=== PATIENT | male | born 1955 | race Caucasian/White ===

== ENCOUNTER → 2016-08-05 | Outpatient (CLI) | payer OTHER ==
[~2016-08-05] MED LIST: ACET-654 PO; AMIT10TA PO; CELE-19 PO; HYDR-3713 PO; HYDR-3716 PO; HYDR-3719 PO; HYDR7.5T38 PO; IBUP200T2 PO; LISI-538 PO; LISI10TA4 PO; LYRI150C PO; MIRA33504 PO; PANT40TA2 PO; PROT1TAB2 PO; RANI1TAB6 PO; SOMA350T PO; SUCR1TA PO; TIZA4CAP3 PO; TRAM100T13 PO; TRAM50TA2 PO; TYLE325T5 PO
--- NOTE | 2016-08-14 23:41 | ECWPNPC ---
PATIENT NAME: CHELITA JIMENEZ : 1955 GENDER: MALE VISIT DATE: 08/05/2016 DISCHARGE DATE: 08/05/16 1604 VISIT LOCKED DATE TIME: PHYSICIAN: LORIE COLLADO RESOURCE: LORIE COLLADO REASON FOR APPOINTMENT 1. WC, BACK HISTORY OF PRESENT ILLNESS HISTORY OF PRESENT ILLNESS: PAIN THE PATIENT DESCRIBES THE PAIN... 61 YEAR OLD MALE PATIENT WITH HISTORY OF CHRONIC BACK PAIN. PATIENT DESCRIBES THE PAIN ACHING, STABBING, TENDER, SORE, AND HAVING IT ALL THE TIME WITH A PAIN SCORE OF 7/10. PATIENT WAS INJURED IN A WORK RELATED ACCIDENT ON 09/01/2006 WHILE WORKING FOR [employer] WHEN HE INJURED HIS BACK. PATIENT REPORTS THAT SOMETIMES THE PAIN WILL WAKE HIM UP AT NIGHT, AND SOMETIMES HE BARELY GETS ANY SLEEP. PATIENT STATES THAT TAKING LYRICA AND NORCO GREATLY INCREASES HIS MOBILITY AND FUNCTIONALITY, THAT WITHOUT THE MEDICATION HIS PAIN LEVELS WOULD BE FAR WORST. PATIENT REPORTS THAT HE HAS TRIED PHYSICAL THERAPY IN THE PAST AND IT ONLY MADE THE PAIN WORST. PATIENT REPORTS THAT A HOT AND COLD COMPRESS DOES TEMPORARILY RELIEF THE PAIN IN HIS BACK. PATIENT DENIES UNEXPLAINABLE WEIGHT LOSS, FEVER, CHILLS, NEW CHANGES ON HIS URINARY OR BOWEL CONTROL. FALL RISK SCREENING: SCREENING :NO FALLS IN THE PAST YEAR CURRENT MEDICATIONS TAKING RANITIDINE HCL 150 MG TABLET 1 TABLET ORALLY TWICE A DAY TAKING CARAFATE 1 GM TABLET 1 TABLET ORALLY TWICE A DAY TAKING MIRALAX - POWDER 1 SCOOP ORALLY ONCE A DAY NEEDED TAKING LYRICA 200 MG CAPSULE 1 CAPSULE ORALLY TID MDD3, NOTES: PAIN CLINIC TAKING LISINOPRIL 20 MG TABLET 1 TABLET ORALLY ONCE A DAY TAKING PROTONIX 40 MG TABLET DELAYED RELEASE 1 TABLET ORALLY ONCE A DAY TAKING REGLAN 10 MG TABLET 1 TABLET ORALLY FOUR TIMES A DAY (BEFORE MEALS AND AT BEDTIME) TAKING NORCO 10-325 MG TABLET 1 ORALLY EVERY 6 HRS PRN MDD4 DISCONTINUED MELOXICAM 10 MG CAPSULE 1 CAPSULE ORALLY ONCE A DAY MEDICATION LIST REVIEWED AND RECONCILED WITH THE PATIENT PAST MEDICAL HISTORY ACUTE PANCREATITIS LAPARASCOPIC CHOLECYSTECTOMY BY DR. SIDHU CHRONIC LOW BACK PAIN CHRONIC LOW BACK PAIN CHRONIC HAND PAIN ALLERGIES N.K.D.A. SURGICAL HISTORY LUMBAR LAMINECTOMY 2006 RIGHT HAND SURGERY S/P TRAUMATIC AMPUTATION OF FINGERS FROM A TABLE SAW 2012 GALL BLADDER 02/2014 COLONSCOPY/ENDOSCOPE 2013 FAMILY HISTORY NO FAMILY HISTORY DOCUMENTED. SOCIAL HISTORY GENERAL: TOBACCO USE ARE YOU A:CURRENT SMOKER LEARNING BARRIERS / SPECIAL NEEDS ORIENTED TO PLAN OF CARE: PATIENT, PAIN MANAGEMENT PATIENT, ORIENTED TO PLAN OF CARE: PATIENT, PAIN MANAGEMENT PATIENT. NEW PATIENT PAIN DIARY TODAY'S VISITNOTES FROM 0-10, WHAT LEVEL IS YOUR PAIN TODAY?0 PAIN CLINIC PFS, CLERGY, PUBLIC HEALTH REFERRALS PFS REFERRAL NEEDED?NO PFS REFERRAL NEEDED?NO CLERGY REFERRAL NEEDED?NO CLERGY REFERRAL NEEDED?NO PUBLIC HEALTH REFERRAL NEEDED?NO PUBLIC HEALTH REFERRAL NEEDED?NO WAS THE PROVIDER NOTIFIED OF ANY PERTINENT INFO?NO WAS THE PROVIDER NOTIFIED OF ANY PERTINENT INFO?NO HOSPITALIZATION/MAJOR DIAGNOSTIC PROCEDURE BACK SURGERY REVIEW OF SYSTEMS CONSTITUTIONAL: ANY CHANGE IN YOUR MEDICAL CONDITION? NO . CHILLS NO . FEVER NO . INFECTION: DO YOU HAVE NEW INFECTIONS? NO . DO YOU HAVE HISTORY OF MRSA? NO . MUSCULOSKELETAL: ANY NEW PATTERNS OF PAIN OR NUMBNESS? NO . GASTROENTEROLOGY: ANY NEW CHANGE IN BOWEL CONTROL? NO . GENITOURINARY: ANY NEW CHANGE IN BLADDER CONTROL? NO . IS THERE A CHANCE YOU COULD BE ? NO . HEMATOLOGY/LYMPH: DO YOU TAKE ANY BLOOD THINNERS? (FOR EXAMPLE- COUMADIN, PLAVIX, AGGRENOX, PLATEL, PRADAXA, OR XARELTO) NO . WHEN WAS YOUR LAST DOSE? DATE: TIME: . NEUROLOGY: HAVE YOU FALLEN IN THE PAST 6 MONTHS? NO . ANY NEW EXTREMITY NUMBNESS OR WEAKNESS? NO . CARDIOLOGY: DO YOU HAVE A PACEMAKER OR DEFIBRILLATOR? NO . RESPIRATORY: HAVE YOU BEEN SICK IN THE PAST WEEK? NO . FEVER NO . FLU LIKE SYMPTOMS? NO . COUGH NO . INTEGUMENTARY: DO YOU HAVE ANY RASHES OR OPEN SORES? NO . ALLERGIC/IMMUNO: ARE YOU ALLERGIC TO SHELLFISH OR IV DYE? NO . ANY NEW ALLERGIES? NO . PSYCHIATRIC: DO YOU HAVE THOUGHTS OF HURTING YOURSELF OR SOMEONE ELSE? NO . ARE YOU ABUSED, NEGLECTED, OR IN AN UNSAFE ENVIRONMENT? NO . ENDOCRINOLOGY: ARE YOU DIABETIC? NO . OTHER: DO YOU NEED ANY PRESCRIPTIONS? NO . IF YES, PLEASE LIST: ____ . ANY NEW PROBLEMS WITH YOUR MEDICATIONS? NO . WHEN DID YOU LAST EAT? ____ . WHEN DID YOU LAST DRINK? ____ . WHAT DID YOU LAST DRINK? ____ . NAME OF PERSON DRIVING YOU HOME? ____ . DO YOU HAVE ANY OTHER QUESTIONS OR CONCERNS NO . REVIEWED BY: PROVIDER: LORIE COLLADO MD . VITAL SIGNS WT 213.4 LBS, HT 68 IN, BMI 32.44 INDEX, BP 137/88 MM HG, HR 76 /MIN, RR 18 /MIN, TEMP 96.9 F, OXYGEN SAT % 96%, NA INITIALS SC 13:43, REVIEWED BY: VD. EXAMINATION : PATIENT IS ALERT O X 3 AND COOPERATIVE. PATIENT IS ABLE TO FLEX HIS BACK AT 45 DEGREES AND EXTEND HIS BACK AT 10 DEGREES. PATIENT'S LEFT LEG IS WEAKER COMPARED TO THE RIGHT ESPECIALLY AT FLEXION. ASSESSMENTS POST LAMINECTOMY SYNDROME - M96.1 (PRIMARY) TREATMENT POST LAMINECTOMY SYNDROME REFILL LYRICA CAPSULE, 200 MG, 1 CAPSULE, ORALLY, TID MDD3, 30 DAY(S), 90, REFILLS 2, NOTES: PAIN CLINIC REFILL NORCO TABLET, 10-325 MG, 1, ORALLY, EVERY 6 HRS PRN MDD4, 30 DAY(S), 110, REFILLS 0 NOTES: FACET JOINT INJECTION MATERIAL WAS PRINTED,FACET JOINT INJECTION MATERIAL WAS PRINTED,FACET JOINT INJECTION: YOUR EXPERIENCE MATERIAL WAS PRINTED. CLINICAL NOTES: WE DISCUSSED SEVERAL ISSUES WITH MR. JIMENEZ'S PAIN MANAGEMENT CASE. PATIENT WILL RECEIVE A REFILL OF LYRICA AND NORCO THOSE MEDICATION HELP WITH THE PATIENT'S PAIN. PATIENT STATES THAT HE IS NOT INTERESTED AT A DCS AT THIS TIME. I DISCUSSED WITH THE PATIENT THAT HE IS A GOOD CANDIDATE FOR A RADIOFREQUENCY, BUT FIRST A DIAGNOSTIC INJECTION MUST BE DONE BEFORE WE CAN PROCEED WITH A RADIOFREQUENCY. WE DISCUSSED THE RISK, ALTERNATIVES, AND BENEFITS AND THE PATIENT WOULD LIKE TO PROCEED. PATIENT WILL BE BOOKED PENDING APPROVAL. I ADVISED THE PATIENT THAT HE MUST BRING THE MEDICATION BOTTLES TO EVERY VISIT. URINE TOX ORDERED ON 06/08/2016 SHOWS INCONSISTENT RESULTS, I WILL ORDER ANOTHER URINE TOX FOR THE PATIENT TODAY. COMPLETED THE OPIOID RISK TOOL TODAY. PATIENT TO FOLLOW UP WITH ME IN 2 WEEKS. INSTRUCTIONS WERE GIVEN, QUESTIONS WERE ANSWERED, PATIENT REPORTS UNDERSTANDING AND AGREES WITH THE PLAN. I, ALEXANDREA BRUNO, DOCUMENTED THE ABOVE INFORMATION ACTING A SCRIBE FOR DR. COLLADO. I HAVE REVIEWED THE ABOVE DOCUMENT, WRITTEN BY ALEXANDREA BOLAND AND I VERIFY THAT IT IS ACCURATE. PROCEDURES PN WORKMANS' COMP OPINION IN YOUR OPINION, WAS THE INCIDENT THAT THE PATIENT DESCRIBED THE COMPETENT MEDICAL CAUSE OF THIS INJURY/ILLNESS? YES ARE THE PATIENT'S COMPLAINTS CONSISTENT WITH HIS/HER HISTORY OF THE INJURY/ILLNESS? YES IS THE PATIENT'S HISTORY OF THE INJURY/ILLNESS CONSISTENT WITH YOUR OBJECTIVE FINDING? YES WHAT IS THE PERCENTAGE OF TEMPORARY IMPAIRMENT? MODERATE TO MARKED = 66.7% IS THE PATIENT WORKING? NO DOCTOR ON SITE: LORIE CLAYTON MD PROCEDURE CODES FA211 ESTABILISHED PATIENT [facility] CHARGE G8730 PAIN ASSESS POS TOOL F/U PLAN DOC G8427 DOC MEDS VERIFIED W/PT OR RE FOLLOW UP 2 WEEKS ELECTRONICALLY SIGNED BY LORIE COLLADO MD ON 08/14/2016 AT 07:53 PM EST DISCLAIMER : THIS IS A VISIT SUMMARY EXTRACTED FROM THE [employer] CHART. IT IS NOT A COPY OF THE [employer] PROGRESS NOTE. CARMITA
== END ==
LOC: M PAIN 13:40
PROVIDERS: ATTEND Anesthesiology
DX: Z09 Encounter for follow-up examination after completed treatment for conditions other than malignant neoplasm (principal); G89.29 Other chronic pain; M96.1 Postlaminectomy syndrome, not elsewhere classified; F17.200 Nicotine dependence, unspecified, uncomplicated; Z79.891 Long term (current) use of opiate analgesic; Z79.899 Other long term (current) drug therapy

== ENCOUNTER → 2016-09-23 | Outpatient (REF) | payer OTHER ==
[2016-09-23 16:29] LABS: ALBUMIN 3.7 GM/DL (3.2-5.2); ALKALINE PHOSPHATASE 104 U/L (45-117); ALT/SGPT 19 U/L (12-78); ANION GAP 11 MEQ/L (8-16); AST/SGOT 12 U/L (15-37); BILIRUBIN,TOTAL 0.5 MG/DL (0.2-1.0); BLOOD UREA NITROGEN 9 MG/DL (7-18); CARBON DIOXIDE LEVEL 27 MEQ/L (21-32); CHLORIDE LEVEL 102 MEQ/L (98-107); CHOLESTEROL LEVEL 198 MG/DL (<200); CREATININE FOR GFR 0.73 MG/DL (0.70-1.30); GLOMERULAR FILTRATION RATE > 60.0 (>49); GLUCOSE, FASTING 82 MG/DL (80-110); POTASSIUM SERUM 4.3 MEQ/L (3.5-5.1); SODIUM LEVEL 140 MEQ/L (136-145); TOTAL PROTEIN 7.4 GM/DL (6.4-8.2); TRIGLYCERIDES LEVEL 141 MG/DL (<150)
== END ==
LOC: M SFHCSACK 10:24
PROVIDERS: ATTEND Physician Assistant
DX: I10 Essential (primary) hypertension (principal); E78.5 Hyperlipidemia, unspecified

== ENCOUNTER → 2016-09-27 | Outpatient (CLI) | payer OTHER ==
--- NOTE | 2016-10-04 02:24 | ECWPNPC ---
PATIENT NAME: CEHLITA JIMENEZ : 1955 GENDER: MALE VISIT DATE: 09/27/2016 DISCHARGE DATE: 09/27/16 1645 VISIT LOCKED DATE TIME: PHYSICIAN: LORIE COLLADO RESOURCE: LORIE COLLADO REASON FOR APPOINTMENT 1. BACK HISTORY OF PRESENT ILLNESS HISTORY OF PRESENT ILLNESS: PAIN THE PATIENT DESCRIBES THE PAIN... 61 YEAR OLD MALE PATIENT WITH HISTORY OF CHRONIC BACK PAIN. PATIENT DESCRIBES THE PAIN ACHING, BURNING, SHARP, TENDER, SHOOTING, AND HAVING IT ALL THE TIME WITH A PAIN SCORE OF 7/10 ON TODAY'S VISIT. PATIENT WAS INJURED IN A WORK RELATED ACCIDENT ON 09/01/2006 WHILE WORKING FOR [employer], [employer] WHEN HE INJURED HIS BACK. PATIENT REPORTS THAT HE HAS TRIED PT IN THE PAST WITHOUT SUCCESS AND IMPROVEMENT AND IT ONLY MADE THE PAIN WORST. PATIENT STATES THAT HE HAD BACK SURGERY IN 2006. PATIENT REPORTS THE PAIN IN HIS BACK WAKES HIM UP AT NIGHT EVERY 2 HOURS AND HE HAS DIFFICULTIES FALLING ASLEEP. PATIENT STATES THAT NOW HE HAS RADIATING PAIN GOING UP TO THE MIDDLE OF HIS BACK FROM HIS LOW BACK. PATIENT STATES THAT HE HAS TINGLY FEELING IN BOTH LEGS WITH A BURNING SENSATION IN HIS FEET AND HE HAS NUMBNESS SENSATION IN THE FRONT OF THE LEGS. PATIENT REPORTS THAT EVEN THOUGH HE IS TAKING THE PAIN MEDICATION, THE PAIN IS GETTING WORST. PATIENT STATES THAT DUE TO THE PAIN HE IS SPENDING ABOUT 80 PERCENT OF THE DAY IN BED. , PATIENT DENIES UNEXPLAINABLE WEIGHT LOSS, FEVER, CHILLS, NEW CHANGES ON HIS URINARY OR BOWEL CONTROL. FALL RISK SCREENING: SCREENING :NO FALLS IN THE PAST YEAR CURRENT MEDICATIONS TAKING LYRICA 200 MG CAPSULE 1 CAPSULE ORALLY TID MDD3, NOTES: PAIN CLINIC TAKING RANITIDINE HCL 150 MG TABLET 1 TABLET ORALLY TWICE A DAY TAKING CARAFATE 1 GM TABLET 1 TABLET ORALLY TWICE A DAY TAKING MIRALAX - POWDER 1 SCOOP ORALLY ONCE A DAY NEEDED TAKING LISINOPRIL 20 MG TABLET 1 TABLET ORALLY ONCE A DAY TAKING PROTONIX 40 MG TABLET DELAYED RELEASE 1 TABLET ORALLY ONCE A DAY TAKING NORCO 10-325 MG TABLET 1 ORALLY EVERY 6 HRS PRN MDD4 NOT-TAKING REGLAN 10 MG TABLET 1 TABLET ORALLY FOUR TIMES A DAY (BEFORE MEALS AND AT BEDTIME) MEDICATION LIST REVIEWED AND RECONCILED WITH THE PATIENT PAST MEDICAL HISTORY ACUTE PANCREATITIS LAPARASCOPIC CHOLECYSTECTOMY BY DR. SIDHU CHRONIC LOW BACK PAIN CHRONIC LOW BACK PAIN CHRONIC HAND PAIN ALLERGIES N.K.D.A. SURGICAL HISTORY LUMBAR LAMINECTOMY 2007 RIGHT HAND SURGERY S/P TRAUMATIC AMPUTATION OF FINGERS FROM A TABLE SAW 2013 GALL BLADDER 02/2014 COLONSCOPY/ENDOSCOPE 2013 FAMILY HISTORY NO FAMILY HISTORY DOCUMENTED. SOCIAL HISTORY GENERAL: TOBACCO USE ARE YOU A:NONSMOKER LEARNING BARRIERS / SPECIAL NEEDS ORIENTED TO PLAN OF CARE: PATIENT, PAIN MANAGEMENT PATIENT, ORIENTED TO PLAN OF CARE: PATIENT, PAIN MANAGEMENT PATIENT. NEW PATIENT PAIN DIARY TODAY'S VISITNOTES FROM 0-10, WHAT LEVEL IS YOUR PAIN TODAY?0 PAIN CLINIC PFS, CLERGY, PUBLIC HEALTH REFERRALS PFS REFERRAL NEEDED?NO CLERGY REFERRAL NEEDED?NO PUBLIC HEALTH REFERRAL NEEDED?NO WAS THE PROVIDER NOTIFIED OF ANY PERTINENT INFO?NO PFS REFERRAL NEEDED?NO CLERGY REFERRAL NEEDED?NO PUBLIC HEALTH REFERRAL NEEDED?NO WAS THE PROVIDER NOTIFIED OF ANY PERTINENT INFO?NO HOSPITALIZATION/MAJOR DIAGNOSTIC PROCEDURE BACK SURGERY REVIEW OF SYSTEMS CONSTITUTIONAL: ANY CHANGE IN YOUR MEDICAL CONDITION? NO . CHILLS NO . FEVER NO . INFECTION: DO YOU HAVE NEW INFECTIONS? NO . DO YOU HAVE HISTORY OF MRSA? NO . MUSCULOSKELETAL: ANY NEW PATTERNS OF PAIN OR NUMBNESS? YES PT REPORTS A NEW BURNING IN BOTH FEET, HAS NOTICED IT OVER THE LAST SEVERAL MONTHS. STILL HAS NUMBNESS/TINGLING IN BOTH LEGS . GASTROENTEROLOGY: ANY NEW CHANGE IN BOWEL CONTROL? NO . GENITOURINARY: ANY NEW CHANGE IN BLADDER CONTROL? NO . IS THERE A CHANCE YOU COULD BE ? NO . HEMATOLOGY/LYMPH: DO YOU TAKE ANY BLOOD THINNERS? (FOR EXAMPLE- COUMADIN, PLAVIX, AGGRENOX, PLATEL, PRADAXA, OR XARELTO) NO . WHEN WAS YOUR LAST DOSE? DATE: TIME: . NEUROLOGY: HAVE YOU FALLEN IN THE PAST 6 MONTHS? NO . ANY NEW EXTREMITY NUMBNESS OR WEAKNESS? NO . CARDIOLOGY: DO YOU HAVE A PACEMAKER OR DEFIBRILLATOR? NO . RESPIRATORY: HAVE YOU BEEN SICK IN THE PAST WEEK? NO . FEVER NO . FLU LIKE SYMPTOMS? NO . COUGH NO . INTEGUMENTARY: DO YOU HAVE ANY RASHES OR OPEN SORES? NO . ALLERGIC/IMMUNO: ARE YOU ALLERGIC TO SHELLFISH OR IV DYE? NO . ANY NEW ALLERGIES? NO . PSYCHIATRIC: DO YOU HAVE THOUGHTS OF HURTING YOURSELF OR SOMEONE ELSE? NO . ARE YOU ABUSED, NEGLECTED, OR IN AN UNSAFE ENVIRONMENT? NO . ENDOCRINOLOGY: ARE YOU DIABETIC? NO . OTHER: DO YOU NEED ANY PRESCRIPTIONS? NO . IF YES, PLEASE LIST: ____ . ANY NEW PROBLEMS WITH YOUR MEDICATIONS? NO . WHEN DID YOU LAST EAT? ____ . WHEN DID YOU LAST DRINK? ____ . WHAT DID YOU LAST DRINK? ____ . NAME OF PERSON DRIVING YOU HOME? ____ . DO YOU HAVE ANY OTHER QUESTIONS OR CONCERNS NO . REVIEWED BY: PROVIDER: LORIE COLLADO MD . VITAL SIGNS WT 204.8 LBS, HT 68 IN, BMI 31.14 INDEX, BP 125/71 MM HG, HR 76 /MIN, RR 18 /MIN, TEMP 98.0 F, OXYGEN SAT % 96, SAFE IN ENV? (Y/N) YES, NA INITIALS HS, REVIEWED BY: NEEMA. EXAMINATION : PATIENT IS ALERT O X 3 AND COOPERATIVE. PATIENT AMBULATES WITH AN ANTALGIC GAIT AND WITH A SLIGHT LIMP ON THE RIGHT LEG. PATIENT HAS TENDERNESS IN THE LOW BACK PARASPINAL MUSCLE GROUP. THERE IS A SACR TISSUE IN THE LOW BACK. THE SKIN IN THE BACK IS MOTTLED, EVIDENCE SHOWING THAT THE PATIENT IS USING A HEAT PACK. PATIENT RIGHT AND LEFT LEG ARE RELATIVELY WEAK, LEFT LEG BEING WEAKER. PATIENT IS ABLE TO FLEX HIS BACK 45 DEGREES AND EXTEND TO 10 DEGREES. PATIENT IS ABLE TO ABDUCT HIS UPPER EXTREMITIES PAST SHOULDER LEVEL. PATIENT HAS LOW BACK PAIN AND RIGHT LEG PAIN EVIDENCE OF L3--S1 DISTRIBUTION. STRAIGHT LEG RASING POSITIVE FOR PAIN AT 30 DEGREES. MRI OF THE LUMBAR SPINE DONE ON 09/04/2014 SHOWS LAMINECTOMY CHANGES FROM L3-L5, AND A DISC PROTRUSION AT L5-S1. ASSESSMENTS POST LAMINECTOMY SYNDROME - M96.1 (PRIMARY) INTERVERTEBRAL DISC DISORDERS WITH RADICULOPATHY, LUMBAR REGION - M51.16 TREATMENT POST LAMINECTOMY SYNDROME REFILL LYRICA CAPSULE, 200 MG, 1 CAPSULE, ORALLY, TID MDD3, 30 DAY(S), 90, REFILLS 0, NOTES: PAIN CLINIC REFILL NORCO TABLET, 10-325 MG, 1, ORALLY, EVERY 6 HRS PRN MDD4, 30 DAY(S), 110, REFILLS 0 NOTES: WE DISCUSSED SEVERAL ISSUES WITH MR. JIMENEZ'S PAIN MANAGEMENT CASE. I WAS WITH THE PATIENT MORE THAN 30 MINS IN TODAY'S ENCOUNTER, MORE THAN HALF THE TIME WAS DEDICATED TO DISCUSSING ALTERNATIVES, COUNSELING, AND MEDICATION MANAGEMENT. PATIENT BROUGHT HIS MEDICATION BOTTLES TO TODAY'S VISIT. AT THIS TIME I WILL REFILL NORCO FOR SOMATIC PAIN AND LYRICA FOR NEUROPATHIC PAIN. I DISCUSSED IN DETAIL ABOUT THE POSSIBILITY OF A DCS AND TO THINK IT OVER IF THAT IS SOMETHING HE WOULD BE INTERESTED IN. AFTER EXAMINING THE PATIENT AND REVIEWING THE MRIS PATIENT IS A GOOD CANDIDATE FOR A TRANSFORAMINAL EPIDURAL RIGHT AT POSSIBLE LEVELS OF L3 TO L5. EPIDURAL INJECTIONS WERE DISCUSSED WITH THE PATIENT. FDA CONCERNS AND WARNING WERE REVIEWED INCLUDING THE RISK OF BLEEDING, RISK OF INFECTION, RISK OF INCREASED PAIN OR NEURALGIA, AND RISK OF PARALYSIS. PATIENT'S QUESTIONS WERE ANSWERED AND HE/SHE WISHES TO MOVE FORWARD WITH EPIDURAL INJECTION. DISCUSSED WITH THE PATIENT THAT A REGULAR EPIDURAL MAY NOT BE POSSIBLE DUE TO PREVIOUS SURGERIES ON HIS BACK. WE DISCUSSED THE RISK, BENEFITS, AND ALTERNATIVES AND THE PATIENT WOULD LIKE TO PROCEED. PATIENT WILL BE BOOKED PENDING APPROVAL. INSTRUCTIONS WERE GIVEN, QUESTIONS WERE ANSWERED, PATIENT REPORTS UNDERSTANDING AND AGREES WITH THE PLAN. I, ALEXANDREA BRUNO, DOCUMENTED THE ABOVE INFORMATION ACTING A SCRIBE FOR DR. COLLADO. I HAVE REVIEWED THE ABOVE DOCUMENT, WRITTEN BY ALEXANDREA BRUNO SCRIBE AND I VERIFY THAT IT IS ACCURATE. PROCEDURES PN WORKMANS' COMP OPINION IN YOUR OPINION, WAS THE INCIDENT THAT THE PATIENT DESCRIBED THE COMPETENT MEDICAL CAUSE OF THIS INJURY/ILLNESS? YES ARE THE PATIENT'S COMPLAINTS CONSISTENT WITH HIS/HER HISTORY OF THE INJURY/ILLNESS? YES IS THE PATIENT'S HISTORY OF THE INJURY/ILLNESS CONSISTENT WITH YOUR OBJECTIVE FINDING? YES WHAT IS THE PERCENTAGE OF TEMPORARY IMPAIRMENT? MODERATE TO MARKED = 66.7% IS THE PATIENT WORKING? NO DOCTOR ON SITE: LORIE CLAYTON MD PREVENTIVE MEDICINE PAIN CLINIC TEACHING: PROCEDURE TEACHING TRANSFORAMINAL PROCEDURE REVIEWED WITH PATIENT, PT VERBALIZES UNDERSTANDING. PROCEDURE CODES FA211 ESTABILISHED PATIENT [facility] FACILITY CHARGE G8730 PAIN ASSESS POS TOOL F/U PLAN DOC G8427 DOC MEDS VERIFIED W/PT OR RE DISPOSITION & COMMUNICATION FOLLOW UP TRANSFORAMINAL PENDING APPROVAL ELECTRONICALLY SIGNED BY LORIE COLLADO MD ON 10/03/2016 AT 05:07 PM EDT DISCLAIMER : THIS IS A VISIT SUMMARY EXTRACTED FROM THE [employer] CHART. IT IS NOT A COPY OF THE [employer] PROGRESS NOTE. MTDD
== END ==
LOC: M PAIN 15:00
PROVIDERS: ATTEND Anesthesiology
DX: Z09 Encounter for follow-up examination after completed treatment for conditions other than malignant neoplasm (principal); G89.29 Other chronic pain; M96.1 Postlaminectomy syndrome, not elsewhere classified; M51.16 Intervertebral disc disorders with radiculopathy, lumbar region; I10 Essential (primary) hypertension; E78.5 Hyperlipidemia, unspecified; K21.9 Gastro-esophageal reflux disease without esophagitis; F17.200 Nicotine dependence, unspecified, uncomplicated; Z79.891 Long term (current) use of opiate analgesic; Z79.899 Other long term (current) drug therapy

== ENCOUNTER → 2016-11-11 | Outpatient (CLI) | payer OTHER ==
--- NOTE | 2016-11-20 23:55 | ECWPNPC ---
PATIENT NAME: CHELITA JIMENEZ : 1955 GENDER: MALE VISIT DATE: 11/11/2016 DISCHARGE DATE: 11/11/16 1627 VISIT LOCKED DATE TIME: PHYSICIAN: LORIE COLLADO RESOURCE: LORIE COLLADO REASON FOR APPOINTMENT 1. LOW BACK PAIN HISTORY OF PRESENT ILLNESS HISTORY OF PRESENT ILLNESS: PAIN THE PATIENT DESCRIBES THE PAIN... 61 YEAR OLD MALE PATIENT WITH HISTORY OF CHRONIC BACK PAIN. PATIENT DESCRIBES THE PAIN ACHING, BURNING, SHARP, TENDER, SHOOTING, AND HAVING IT ALL THE TIME WITH A PAIN SCORE OF 8/10 ON TODAY'S VISIT. PATIENT WAS INJURED IN A WORK RELATED ACCIDENT ON 09/01/2006 WHILE WORKING FOR [email or web address], [employer] WHEN HE INJURED HIS BACK. PATIENT REPORTS THAT HE HAS TRIED PT IN THE PAST WITHOUT SUCCESS AND IMPROVEMENT AND IT ONLY MADE THE PAIN WORST. PATIENT STATES THAT HE HAD BACK SURGERY IN 2006. PATIENT STATES THAT HE HAS RADIATING PAIN GOING UP TO THE MIDDLE OF HIS BACK FROM HIS LOW BACK. PATIENT STATES THAT HE HAS TINGLY FEELING IN BOTH LEGS WITH A BURNING SENSATION IN HIS FEET AND HE HAS NUMBNESS SENSATION IN THE FRONT OF THE LEGS. PATIENT REPORTS THAT EVEN THOUGH HE IS TAKING THE PAIN MEDICATION, THE PAIN IS GETTING WORST. PATIENT STATES THAT DUE TO THE PAIN HE IS SPENDING ABOUT 80 PERCENT OF THE DAY IN BED. PATIENT DENIES UNEXPLAINABLE WEIGHT LOSS, FEVER, CHILLS, NEW CHANGES ON HIS URINARY OR BOWEL CONTROL. FALL RISK SCREENING: SCREENING :NO FALLS IN THE PAST YEAR CURRENT MEDICATIONS TAKING LISINOPRIL 20 MG TABLET 1 TABLET ORALLY ONCE A DAY TAKING LYRICA 200 MG CAPSULE 1 CAPSULE ORALLY TID MDD3, NOTES: PAIN CLINIC TAKING NORCO 10-325 MG TABLET 1 ORALLY EVERY 6 HRS PRN MDD4 TAKING RANITIDINE HCL 150 MG TABLET 1 TABLET ORALLY TWICE A DAY TAKING MIRALAX - POWDER 1 SCOOP ORALLY ONCE A DAY NEEDED TAKING CARAFATE 1 GM TABLET 1 TABLET ORALLY TWICE A DAY MEDICATION LIST REVIEWED AND RECONCILED WITH THE PATIENT PAST MEDICAL HISTORY LAPARASCOPIC CHOLECYSTECTOMY BY DR. SIDHU CHRONIC LOW BACK PAIN CHRONIC HAND PAIN HYPERTENSION HYPERLIPIDEMIA ESOPHAGEAL REFLUX SMOKER ABDOMINAL AORTIC ANEURYSM ALLERGIES N.K.D.A. SURGICAL HISTORY LUMBAR LAMINECTOMY 2006 RIGHT HAND SURGERY S/P TRAUMATIC AMPUTATION OF FINGERS FROM A TABLE SAW 2012 GALL BLADDER 02/2014 COLONSCOPY/ENDOSCOPE 2013 FAMILY HISTORY FATHER: ALIVE MOTHER: ALIVE SIBLINGS: ALIVE 2 BROTHER(S) . SOCIAL HISTORY GENERAL: TOBACCO USE ARE YOU A:CURRENT SMOKER HOW MANY CIGARETTES A DAY DO YOU SMOKE?11- PATIENT COUNSELED ON THE DANGERS OF TOBACCO USE AND URGED TO QUIT:05/25/2016 ARE YOU INTERESTED IN QUITTING?NOT READY TO QUIT COUNSELED THE PATIENT ON SMOKING EFFECTS, EDUCATION [id number] ADDITIONAL FINDINGS: TOBACCO USERMODERATE CIGARETTE SMOKER (10-19 CIGS/DAY) SMOKING CESSATION INFORMATION GIVEN OFFERED- REFUSED BY PT, PT STATES THAT HE IS CUTTING BACK ALCOHOL SCREENING DID YOU HAVE A DRINK CONTAINING ALCOHOL IN THE PAST YEAR?NO POINTS0 INTERPRETATIONNEGATIVE RECREATIONAL DRUG USE DRUG USE?NO CAFFEINE CAFFEINE USE?NO HIV / HEP-C SCREENING HIV TEST OFFERED TO PATIENT:YES DATE OFFERED:09/28/2016 TEST ACCEPTED:NO HEP-C TEST OFFERED TO PATIENT:YES DATE OFFERED:09/28/2016 REASON:PATIENT DECLINED TEST ACCEPTED:NO REASON:PATIENT DECLINED OCCUPATION: DIABLED. DIET: REGULAR. EXERCISE: NONE. MARITAL STATUS: .. OTHERS AT HOME: NONE. CONGREGATION [id number] [employer] LANGUAGE LANGUAGES SPOKEN:THAI EDUCATION LEVEL OF EDUCATION:FINISHED HIGH SCHOOL LEARNING BARRIERS / SPECIAL NEEDS BARRIERS TO LEARNING?NO HEARING IMPAIRED?NO VISION IMPAIRED?NO COGNITIVELY IMPAIRED?NO READINESS TO LEARN?YES LEARNING PREFERENCES?NO LEARNING CAPABILITIES PRESENT?YES EMOTIONAL BARRIERS?NO SPECIAL DEVICES?NO DISEASE CASE MANAGER NEEDED?NO NEW PATIENT PAIN DIARY TODAY'S VISIT NOTES, FROM 0-10, WHAT LEVEL IS YOUR PAIN TODAY? 0. PAIN CLINIC PFS, CLERGY, PUBLIC HEALTH REFERRALS PFS REFERRAL NEEDED? NO, CLERGY REFERRAL NEEDED? NO, PUBLIC HEALTH REFERRAL NEEDED? NO, WAS THE PROVIDER NOTIFIED OF ANY PERTINENT INFO? NO, PFS REFERRAL NEEDED? NO, CLERGY REFERRAL NEEDED? NO, PUBLIC HEALTH REFERRAL NEEDED? NO, WAS THE PROVIDER NOTIFIED OF ANY PERTINENT INFO? NO. DOMESTIC VIOLENCE: NONE. HOSPITALIZATION/MAJOR DIAGNOSTIC PROCEDURE BACK SURGERY REVIEW OF SYSTEMS CONSTITUTIONAL: ANY CHANGE IN YOUR MEDICAL CONDITION? NO . CHILLS NO . FEVER NO . INFECTION: DO YOU HAVE NEW INFECTIONS? NO . DO YOU HAVE HISTORY OF MRSA? NO . MUSCULOSKELETAL: ANY NEW PATTERNS OF PAIN OR NUMBNESS? NO . GASTROENTEROLOGY: ANY NEW CHANGE IN BOWEL CONTROL? NO . GENITOURINARY: ANY NEW CHANGE IN BLADDER CONTROL? NO . IS THERE A CHANCE YOU COULD BE ? NO . HEMATOLOGY/LYMPH: DO YOU TAKE ANY BLOOD THINNERS? (FOR EXAMPLE- COUMADIN, PLAVIX, AGGRENOX, PLATEL, PRADAXA, OR XARELTO) NO . WHEN WAS YOUR LAST DOSE? DATE: TIME: . NEUROLOGY: HAVE YOU FALLEN IN THE PAST 6 MONTHS? NO . ANY NEW EXTREMITY NUMBNESS OR WEAKNESS? NO . CARDIOLOGY: DO YOU HAVE A PACEMAKER OR DEFIBRILLATOR? NO . RESPIRATORY: HAVE YOU BEEN SICK IN THE PAST WEEK? NO . FEVER NO . FLU LIKE SYMPTOMS? NO . COUGH NO . INTEGUMENTARY: DO YOU HAVE ANY RASHES OR OPEN SORES? NO . ALLERGIC/IMMUNO: ARE YOU ALLERGIC TO SHELLFISH OR IV DYE? NO . ANY NEW ALLERGIES? NO . PSYCHIATRIC: DO YOU HAVE THOUGHTS OF HURTING YOURSELF OR SOMEONE ELSE? NO . ARE YOU ABUSED, NEGLECTED, OR IN AN UNSAFE ENVIRONMENT? NO . ENDOCRINOLOGY: ARE YOU DIABETIC? NO . OTHER: DO YOU NEED ANY PRESCRIPTIONS? YES . IF YES, PLEASE LIST: HYDROCODONE AND LYRICA . ANY NEW PROBLEMS WITH YOUR MEDICATIONS? NO . WHEN DID YOU LAST EAT? ____ . WHEN DID YOU LAST DRINK? ____ . WHAT DID YOU LAST DRINK? ____ . NAME OF PERSON DRIVING YOU HOME? ____ . DO YOU HAVE ANY OTHER QUESTIONS OR CONCERNS NO . REVIEWED BY: PROVIDER: LORIE COLLADO MD . VITAL SIGNS WT 211 LBS, HT 68 IN, BMI 32.08 INDEX, BP 146/76 MM HG, HR 79 /MIN, RR 16 /MIN, TEMP 98.7 F, OXYGEN SAT % 96, NA INITIALS AW 1524. EXAMINATION : PATIENT IS ALERT O X 3 AND COOPERATIVE. PATIENT AMBULATES WITH AN ANTALGIC GAIT AND WITH A SLIGHT LIMP ON THE RIGHT LEG. PATIENT HAS TENDERNESS IN THE LOW BACK PARASPINAL MUSCLE GROUP. THERE IS A SACR TISSUE IN THE LOW BACK. THE SKIN IN THE BACK IS MOTTLED, EVIDENCE SHOWING THAT THE PATIENT IS USING A HEAT PACK. PATIENT RIGHT AND LEFT LEG ARE RELATIVELY WEAK, LEFT LEG BEING WEAKER. PATIENT IS ABLE TO FLEX HIS BACK 45 DEGREES AND EXTEND TO 10 DEGREES. PATIENT IS ABLE TO ABDUCT HIS UPPER EXTREMITIES PAST SHOULDER LEVEL. PATIENT HAS LOW BACK PAIN AND RIGHT LEG PAIN EVIDENCE OF L3--S1 DISTRIBUTION. STRAIGHT LEG RASING POSITIVE FOR PAIN AT 30 DEGREES. MRI OF THE LUMBAR SPINE DONE ON 09/04/2014 SHOWS LAMINECTOMY CHANGES FROM L3-L5, AND A DISC PROTRUSION AT L5-S1. ASSESSMENTS POST LAMINECTOMY SYNDROME - M96.1 (PRIMARY) INTERVERTEBRAL DISC DISORDERS WITH RADICULOPATHY, LUMBAR REGION - M51.16 TREATMENT POST LAMINECTOMY SYNDROME REFILL LYRICA CAPSULE, 200 MG, 1 CAPSULE, ORALLY, TID MDD3, 30 DAY(S), 90, REFILLS 0, NOTES: PAIN CLINIC NOTES: WE DISCUSSED SEVERAL ISSUES WITH MR. JIMENEZ'S PAIN MANAGEMENT CASE. AT THIS TIME THE PATIENT WILL CONTINUE TO USE LYRICA FOR THE NEUROPATHIC PAIN. I WOULD LIKE TO SPEAK WITH AMDANIELATOX TO DISCUSS THE LAST REPORT DONE. I HAVE A LONG CONVERSATION WITH THE PATIENT ON REGARDS OF HIS PHARMACOLOGICAL MANAGEMENT. PATIENT WILL RETURN TO THE CLINIC IN ONE WEEK TO FURTHER DISCUSS HIS CASE. INSTRUCTIONS WERE GIVEN, QUESTIONS WERE ANSWERED, PATIENT REPORTS UNDERSTANDING AND AGREES WITH THE PLAN. I, SEAN CARLISLE, DOCUMENTED THE ABOVE INFORMATION ACTING A SCRIBE FOR DR. COLLADO. I HAVE REVIEWED THE ABOVE DOCUMENT, WRITTEN BY SEAN BOLAND AND I VERIFY THAT IT IS ACCURATE. PROCEDURES PN WORKMANS' COMP OPINION IN YOUR OPINION, WAS THE INCIDENT THAT THE PATIENT DESCRIBED THE COMPETENT MEDICAL CAUSE OF THIS INJURY/ILLNESS? YES ARE THE PATIENT'S COMPLAINTS CONSISTENT WITH HIS/HER HISTORY OF THE INJURY/ILLNESS? YES IS THE PATIENT'S HISTORY OF THE INJURY/ILLNESS CONSISTENT WITH YOUR OBJECTIVE FINDING? YES WHAT IS THE PERCENTAGE OF TEMPORARY IMPAIRMENT? MODERATE TO MARKED = 66.7% IS THE PATIENT WORKING? NO DOCTOR ON SITE: LORIE CLAYTON MD PROCEDURE CODES FA211 ESTABILISHED PATIENT [facility] FACILITY CHARGE G8427 DOC MEDS VERIFIED W/PT OR RE G8730 PAIN ASSESS POS TOOL F/U PLAN DOC DISPOSITION & COMMUNICATION FOLLOW UP 1 WEEK ELECTRONICALLY SIGNED BY LORIE COLLADO MD ON 11/20/2016 AT 12:02 PM EDT DISCLAIMER : THIS IS A VISIT SUMMARY EXTRACTED FROM THE [employer] CHART. IT IS NOT A COPY OF THE [employer] PROGRESS NOTE. [facility]
== END ==
LOC: M PAIN 15:00
PROVIDERS: ATTEND Anesthesiology
DX: M96.1 Postlaminectomy syndrome, not elsewhere classified (principal); M51.16 Intervertebral disc disorders with radiculopathy, lumbar region; I10 Essential (primary) hypertension; E78.5 Hyperlipidemia, unspecified; K21.9 Gastro-esophageal reflux disease without esophagitis; F17.200 Nicotine dependence, unspecified, uncomplicated; I71.4 Abdominal aortic aneurysm, without rupture; Z79.891 Long term (current) use of opiate analgesic; Z79.899 Other long term (current) drug therapy

== ENCOUNTER → 2016-12-21 | Outpatient (REF) | payer OTHER ==
[2016-12-21 16:09] LABS: ALBUMIN 3.7 GM/DL (3.2-5.2); ALBUMIN/GLOBULIN RATIO 1.03 (1.00-1.93); ALKALINE PHOSPHATASE 102 U/L (45-117); ALT/SGPT 21 U/L (12-78); ANION GAP 7 MEQ/L (8-16); AST/SGOT 13 U/L (15-37); BILIRUBIN,TOTAL 0.5 MG/DL (0.2-1.0); BLOOD UREA NITROGEN 8 MG/DL (7-18); CALCIUM LEVEL 8.7 MG/DL (8.8-10.2); CARBON DIOXIDE LEVEL 27 MEQ/L (21-32); CHLORIDE LEVEL 100 MEQ/L (98-107); CHOLESTEROL LEVEL 199 MG/DL (<200); CREATININE FOR GFR 0.61 MG/DL (0.70-1.30); GLOMERULAR FILTRATION RATE > 60.0 (>49); GLUCOSE, FASTING 97 MG/DL (80-110); POTASSIUM SERUM 4.5 MEQ/L (3.5-5.1); SODIUM LEVEL 134 MEQ/L (136-145); TOTAL PROTEIN 7.3 GM/DL (6.4-8.2); TRIGLYCERIDES LEVEL 124 MG/DL (<150)
== END ==
LOC: M SFHCSACK 10:32
PROVIDERS: ATTEND Physician Assistant
DX: I10 Essential (primary) hypertension (principal); E78.5 Hyperlipidemia, unspecified

== ENCOUNTER → 2018-02-14 | Outpatient (CLI) | payer OTHER ==
[2018-02-14 17:14] LABS: BASO # 0.1 10^3/uL (0.0-0.2); BASO % 0.5 % (0.0-1.0); EOS # 0.2 10^3/uL (0.0-0.50); EOS % 1.6 % (0.0-3.0); HEMATOCRIT 48.4 % (42.0-52.0); IMMATURE GRANULOCYTE % 0.5 % (0-3.0); LYMPH # 2.7 10^3/uL (1.5-4.5); LYMPH % 28.5 % (24.0-44.0); MEAN CORPUSCULAR HEMOGLOBIN 31.2 pg (27.0-33.0); MEAN CORPUSCULAR HGB CONC 33.1 g/dl (32.0-36.5); MEAN CORPUSCULAR VOLUME 94.3 fl (80.0-96.0); MONO # 0.7 10^3/uL (0.0-0.8); MONO % 7.8 % (0.0-5.0); NEUTROPHILS # 5.7 10^3/uL (1.8-7.7); NEUTROPHILS % 61.1 % (36.0-66.0); PLATELET COUNT, AUTOMATED 236 10^3/uL (150-450); RED BLOOD COUNT 5.13 10^6/uL (4.30-6.10); RED CELL DISTRIBUTION WIDTH 14.8 % (11.5-14.5); WHITE BLOOD COUNT 9.4 10^3/uL (4.0-10.0)
[2018-02-14 17:22] LABS: ALBUMIN 3.7 GM/DL (3.2-5.2); ALBUMIN/GLOBULIN RATIO 1.06 (1.00-1.93); ALKALINE PHOSPHATASE 98 U/L (45-117); ALT/SGPT 19 U/L (12-78); ANION GAP 5 MEQ/L (8-16); AST/SGOT 9 U/L (7-37); BILIRUBIN,TOTAL 0.5 MG/DL (0.2-1.0); BLOOD UREA NITROGEN 10 MG/DL (7-18); CALCIUM LEVEL 9.1 MG/DL (8.8-10.2); CARBON DIOXIDE LEVEL 30 MEQ/L (21-32); CHLORIDE LEVEL 106 MEQ/L (98-107); CHOLESTEROL LEVEL 149 MG/DL (<200); CREATININE FOR GFR 0.77 MG/DL (0.70-1.30); GLOMERULAR FILTRATION RATE > 60.0 (>49); GLUCOSE, FASTING 98 MG/DL (70-100); HDL CHOLESTEROL 39 MG/DL (>40); LDL CHOLESTEROL 88.6 MG/DL (<100); NON-HDL-C 110 MG/DL; POTASSIUM SERUM 4.6 MEQ/L (3.5-5.1); SODIUM LEVEL 141 MEQ/L (136-145); TOTAL PROTEIN 7.2 GM/DL (6.4-8.2); TRIGLYCERIDES LEVEL 107 MG/DL (<150)
== END ==
LOC: M WUC 11:14
DX: E78.5 Hyperlipidemia, unspecified (principal)
CPT/HCPCS: 80053

== ENCOUNTER → 2018-03-26 | Outpatient (REF) | payer MEDICARE, OTHER | LOC: M LAB REF 16:43 | DX: L03.031 Cellulitis of right toe (principal) | CPT/HCPCS: 87077; 87186 ==

== ENCOUNTER → 2018-04-07 | Outpatient (CLI) | payer MEDICARE, OTHER | LOC: M WUC 14:30 | DX: L03.031 Cellulitis of right toe (principal) | CPT/HCPCS: 73630 ==

== ENCOUNTER → 2018-05-03 | Outpatient (CLI) | payer MEDICARE | LOC: M RAD 11:03 | DX: I73.9 Peripheral vascular disease, unspecified (principal); I71.4 Abdominal aortic aneurysm, without rupture | CPT/HCPCS: 93925 ==

== ENCOUNTER → 2018-06-17 | Outpatient (CLI) | payer MEDICARE ==
[2018-06-17 17:59] LABS: BLOOD UREA NITROGEN 10 MG/DL (7-18)
[2018-06-17 17:59] LABS: CREATININE FOR GFR 0.93 MG/DL (0.70-1.30); GLOMERULAR FILTRATION RATE > 60.0 (>49)
== END ==
LOC: M WUC 15:11
DX: I70.213 Atherosclerosis of native arteries of extremities with intermittent claudication, bilateral legs (principal)
CPT/HCPCS: 82565

== ENCOUNTER → 2018-06-25 | Outpatient (CLI) | payer MEDICARE ==
[~2018-06-25] MED LIST changes: -ACET-654 PO; +ACET1TAB55 PO; -CELE-19 PO; +CELE1CAP4 PO; +ISOVUE-370 76% 100ML VIAL (Q9967) As Ordered ONE; -PANT40TA2 PO; +PANT40TA3 PO; +TIZA4CAP PO; -TIZA4CAP3 PO
--- NOTE | 2018-06-25 20:27 | REP ---
CT angiography abdominal aorta and lower extremity runoff arteries with IV contrast: History: Claudication bilateral legs. CT contrast dose: 100 mL of intravenous Isovue [address] findings: Post cholecystectomy clips are noted. There is a cyst projecting posteriorly from the right mid kidney which measures 2.3 cm. The prostate is somewhat prominent. CT angiography findings: There is a 1.6 cm plaque along the right lateral wall of the descending aorta but no high-grade aortic stenosis is seen. The celiac and superior mesenteric arteries are patent without evidence of stenosis. There are three right renal arteries. No renal artery stenosis is seen. A singular nonstenotic renal artery is noted on the left. There is some tortuosity in the infrarenal abdominal aorta. There is an infrarenal abdominal aortic aneurysm measuring up to 3.9 cm in greatest AP dimension with circumferential thrombus. No high grade luminal stenosis is seen. The right and left common iliac arteries are mildly dilated as well measuring 2.3 cm in AP dimension on the right and 2.1 cm in AP dimension on the left. No common iliac artery stenosis is seen. The internal iliac arteries show calcific plaquing but are patent. No high-grade stenosis is seen in either external iliac artery. The external iliac arteries are slightly tortuous. The right profunda and proximal superficial femoral artery are patent. There is atherosclerotic plaquing of the right superficial femoral artery. The right superficial femoral artery is somewhat small. It is occluded at the level of the adductor canal due to calcific plaquing. The right popliteal artery is reconstituted via geniculate collaterals. In the right calf there is vascular calcification at the trifurcation but three-vessel calf runoff patency is seen to mid calf level. Anterior and posterior tibial arteries are patent across the ankle. The left common femoral and profunda femoral artery branches are normal. Vascular calcification is noted in the left superficial femoral. The left SFA is small in caliber. There is multiple atherosclerotic stenosis in the mid distal SFA. No occlusion is seen on the left. The left popliteal artery shows mild plaquing. There is calcification at the trifurcation. Three-vessel calf runoff is seen to the distal calf and ankle on the left. Impression: The dominant abnormalities are aortobi-iliac aneurysm, diffuse calcific plaquing, relatively small superficial femoral artery caliber bilaterally. There is a short segment occlusion in the right distal superficial femoral with reconstitution of popliteal artery via geniculate collaterals. Electronically Signed by Chintan Gibson MD 06/25/2018 08:43 P
== END ==
LOC: M RAD 12:25
PROVIDERS: ATTEND Surgery Vascular Surgery
DX: I70.213 Atherosclerosis of native arteries of extremities with intermittent claudication, bilateral legs (principal)
CPT/HCPCS: 75635; Q9967

== ENCOUNTER → 2018-08-26 | Outpatient (CLI) | payer MEDICARE ==
[~2018-08-26] MED LIST changes: -ISOVUE-370 76% 100ML VIAL (Q9967) As Ordered ONE
[2018-08-26 18:01] LABS: BLOOD UREA NITROGEN 11 MG/DL (7-18); CALCIUM LEVEL 8.6 MG/DL (8.8-10.2); CARBON DIOXIDE LEVEL 29 MEQ/L (21-32); CHLORIDE LEVEL 105 MEQ/L (98-107); CREATININE FOR GFR 0.84 MG/DL (0.70-1.30); GLOMERULAR FILTRATION RATE > 60.0 (>49); GLUCOSE, FASTING 157 MG/DL (70-100); POTASSIUM SERUM 4.8 MEQ/L (3.5-5.1); SODIUM LEVEL 138 MEQ/L (136-145)
[2018-08-26 18:11] LABS: BASO # 0.1 10^3/uL (0.0-0.2); BASO % 0.4 % (0.0-1.0); EOS # 0.1 10^3/uL (0.0-0.50); EOS % 0.4 % (0.0-3.0); HEMATOCRIT 48.6 % (42.0-52.0); LYMPH # 2.5 10^3/uL (1.5-4.5); MEAN CORPUSCULAR HEMOGLOBIN 31.1 pg (27.0-33.0); MEAN CORPUSCULAR HGB CONC 32.9 g/dl (32.0-36.5); MEAN CORPUSCULAR VOLUME 94.6 fl (80.0-96.0); MONO # 0.5 10^3/uL (0.0-0.8); MONO % 4.3 % (0.0-5.0); NEUTROPHILS # 8.3 10^3/uL (1.8-7.7); NEUTROPHILS % 72.2 % (36.0-66.0); PLATELET COUNT, AUTOMATED 225 10^3/uL (150-450); RED BLOOD COUNT 5.14 10^6/uL (4.30-6.10); WHITE BLOOD COUNT 11.5 10^3/uL (4.0-10.0)
[2018-08-26 18:23] LABS: INR 0.95; PROTHROMBIN TIME 12.8 SECONDS (12.1-14.4)
[2018-08-26 18:24] LABS: PARTIAL THROMBOPLASTIN TIME 35.4 SECONDS (25.4-37.6)
== END ==
LOC: M WUC 14:49
PROVIDERS: ATTEND Surgery Vascular Surgery
DX: Z01.818 Encounter for other preprocedural examination (principal); D69.8 Other specified hemorrhagic conditions; I70.235 Atherosclerosis of native arteries of right leg with ulceration of other part of foot

== ENCOUNTER → 2018-10-21 | Outpatient (CLI) | payer MEDICARE ==
[2018-10-21 17:30] LABS: BLOOD UREA NITROGEN 12 MG/DL (7-18); CALCIUM LEVEL 8.4 MG/DL (8.8-10.2); CARBON DIOXIDE LEVEL 30 MEQ/L (21-32); CHLORIDE LEVEL 106 MEQ/L (98-107); CREATININE FOR GFR 0.94 MG/DL (0.70-1.30); GLOMERULAR FILTRATION RATE > 60.0 (>49); GLUCOSE, FASTING 85 MG/DL (70-100); POTASSIUM SERUM 4.9 MEQ/L (3.5-5.1); SODIUM LEVEL 140 MEQ/L (136-145)
[2018-10-21 17:33] LABS: INR 0.97
[2018-10-21 17:34] LABS: PARTIAL THROMBOPLASTIN TIME 34.9 SECONDS (25.4-37.6)
[2018-10-21 17:56] LABS: BASO # 0.1 10^3/uL (0.0-0.2); BASO % 0.5 % (0.0-1.0); EOS # 0.1 10^3/uL (0.0-0.50); HEMATOCRIT 48.7 % (42.0-52.0); HEMOGLOBIN 15.9 g/dl (13.5-17.5); LYMPH # 2.6 10^3/uL (1.5-4.5); LYMPH % 25.7 % (24.0-44.0); MEAN CORPUSCULAR HEMOGLOBIN 31.5 pg (27.0-33.0); MEAN CORPUSCULAR HGB CONC 32.6 g/dl (32.0-36.5); MEAN CORPUSCULAR VOLUME 96.4 fl (80.0-96.0); MONO # 0.9 10^3/uL (0.0-0.8); MONO % 8.7 % (0.0-5.0); NEUTROPHILS # 6.4 10^3/uL (1.8-7.7); NEUTROPHILS % 63.7 % (36.0-66.0); PLATELET COUNT, AUTOMATED 221 10^3/uL (150-450); RED BLOOD COUNT 5.05 10^6/uL (4.30-6.10)
== END ==
LOC: M WUC 14:49
PROVIDERS: ATTEND Surgery Vascular Surgery
DX: Z01.818 Encounter for other preprocedural examination (principal); I70.235 Atherosclerosis of native arteries of right leg with ulceration of other part of foot; D69.8 Other specified hemorrhagic conditions

== ENCOUNTER → 2019-06-11 | Outpatient (CLI) | payer MEDICARE ==
[~2019-06-11] MED LIST changes: +RANI-356 PO; -RANI1TAB6 PO
[2019-06-11 17:42] LABS: BLOOD UREA NITROGEN 13 MG/DL (7-18); CALCIUM LEVEL 9.2 MG/DL (8.8-10.2); CARBON DIOXIDE LEVEL 29 MEQ/L (21-32); CHLORIDE LEVEL 104 MEQ/L (98-107); CREATININE FOR GFR 0.72 MG/DL (0.70-1.30); GLOMERULAR FILTRATION RATE > 60.0 (>49); GLUCOSE, FASTING 81 MG/DL (70-100); POTASSIUM SERUM 4.5 MEQ/L (3.5-5.1); SODIUM LEVEL 140 MEQ/L (136-145)
[2019-06-11 17:43] LABS: BASO % 0.3 % (0.0-1.0); EOS # 0.1 10^3/uL (0.0-0.5); EOS % 0.6 % (0.0-3.0); HEMATOCRIT 48.9 % (42.0-52.0); HEMOGLOBIN 15.9 g/dl (13.5-17.5); LYMPH # 2.4 10^3/uL (1.5-5.0); LYMPH % 21.9 % (24.0-44.0); MEAN CORPUSCULAR HEMOGLOBIN 30.3 pg (27.0-33.0); MEAN CORPUSCULAR HGB CONC 32.5 g/dl (32.0-36.5); MEAN CORPUSCULAR VOLUME 93.3 fl (80.0-96.0); MONO # 0.9 10^3/uL (0.0-0.8); MONO % 8.3 % (0.0-5.0); NEUTROPHILS # 7.5 10^3/uL (1.5-8.5); NEUTROPHILS % 68.4 % (36.0-66.0); PLATELET COUNT, AUTOMATED 249 10^3/uL (150-450); RED BLOOD COUNT 5.24 10^6/uL (4.30-6.10)
== END ==
LOC: M WUC 14:31
PROVIDERS: ATTEND Internal Medicine Cardiovascular Disease
DX: R94.30 Abnormal result of cardiovascular function study, unspecified (principal)

== ENCOUNTER → 2020-01-07 | Outpatient (CLI) | payer MEDICARE ==
[~2020-01-07] MED LIST changes: -RANI-356 PO; +RANI-397 PO
[2020-01-07 13:32] LABS: HEMATOCRIT 49.3 % (42.0-52.0); HEMOGLOBIN 15.6 g/dl (13.5-17.5); MEAN CORPUSCULAR HEMOGLOBIN 28.9 pg (27.0-33.0); MEAN CORPUSCULAR HGB CONC 31.6 g/dl (32.0-36.5); MEAN CORPUSCULAR VOLUME 91.3 fl (80.0-96.0); PLATELET COUNT, AUTOMATED 278 10^3/uL (150-450); WHITE BLOOD COUNT 10.4 10^3/uL (4.0-10.0)
[2020-01-07 13:35] LABS: BLOOD UREA NITROGEN 11 MG/DL (7-18); CALCIUM LEVEL 8.8 MG/DL (8.8-10.2); CARBON DIOXIDE LEVEL 26 MEQ/L (21-32); CHLORIDE LEVEL 104 MEQ/L (98-107); CREATININE FOR GFR 0.76 MG/DL (0.70-1.30); GLOMERULAR FILTRATION RATE > 60.0 (>49); GLUCOSE, FASTING 89 MG/DL (70-100); POTASSIUM SERUM 4.1 MEQ/L (3.5-5.1); SODIUM LEVEL 136 MEQ/L (136-145)
[2020-01-07 13:36] LABS: ALBUMIN 3.6 GM/DL (3.2-5.2); ALT/SGPT 27 U/L (12-78); BILIRUBIN,TOTAL 0.5 MG/DL (0.2-1.0); CHOLESTEROL LEVEL 162 MG/DL (<200); CHOLESTEROL RISK RATIO 4.628 (<5); HDL CHOLESTEROL 35 MG/DL (>40); LDL CHOLESTEROL 92 MG/DL (<100); NON-HDL-C 127 MG/DL; TOTAL PROTEIN 7.3 GM/DL (6.4-8.2); TRIGLYCERIDES LEVEL 174 MG/DL (<150)
== END ==
LOC: M WUC 09:13
PROVIDERS: ATTEND Family Medicine
DX: I25.10 Atherosclerotic heart disease of native coronary artery without angina pectoris (principal)

== ENCOUNTER → 2021-03-08 | Outpatient (CLI) | payer MEDICARE ==
[~2021-03-08] MED LIST changes: -AMIT10TA PO; +AMIT10TA7 PO; -LISI-538 PO; +LISI10TA22 PO; -LISI10TA4 PO; +LISI20TA33 PO; +PANT40TA29 PO; -PANT40TA3 PO
[2021-03-08 16:40] LABS: HEMOGLOBIN 15.7 g/dl (13.5-17.5); MEAN CORPUSCULAR VOLUME 90.6 fl (80.0-96.0); PLATELET COUNT, AUTOMATED 245 10^3/uL (150-450); RED BLOOD COUNT 5.41 10^6/uL (4.30-6.10); WHITE BLOOD COUNT 10.7 10^3/uL (4.0-10.0)
[2021-03-08 17:11] LABS: ALBUMIN 3.5 GM/DL (3.2-5.2); ALT/SGPT 26 U/L (12-78); BILIRUBIN,TOTAL 0.4 MG/DL (0.2-1.0); BLOOD UREA NITROGEN 14 MG/DL (7-18); CALCIUM LEVEL 9.1 MG/DL (8.8-10.2); CARBON DIOXIDE LEVEL 28 MEQ/L (21-32); CHLORIDE LEVEL 107 MEQ/L (98-107); CHOLESTEROL LEVEL 245 MG/DL (<200); CHOLESTEROL RISK RATIO 6.447 (<5); CREATININE FOR GFR 0.74 MG/DL (0.70-1.30); GLOMERULAR FILTRATION RATE > 60.0 (>49); GLUCOSE, FASTING 102 MG/DL (70-100); HDL CHOLESTEROL 38 MG/DL (>40); LDL CHOLESTEROL 170 MG/DL (<100); NON-HDL-C 207 MG/DL; POTASSIUM SERUM 4.1 MEQ/L (3.5-5.1); SODIUM LEVEL 140 MEQ/L (136-145); TOTAL PROTEIN 6.9 GM/DL (6.4-8.2); TRIGLYCERIDES LEVEL 186 MG/DL (<150)
== END ==
LOC: M WUC 13:12
PROVIDERS: ATTEND Family Medicine
DX: I10 Essential (primary) hypertension (principal); Z12.5 Encounter for screening for malignant neoplasm of prostate
CPT/HCPCS: 36415; 80053; 80061; 85027; G0103

== ENCOUNTER → 2022-07-14 | Outpatient (CLI) | payer MEDICARE ==
[2022-07-14 16:34] LABS: HEMATOCRIT 49.7 % (42.0-52.0); HEMOGLOBIN 15.7 g/dl (13.5-17.5); MEAN CORPUSCULAR HEMOGLOBIN 29.2 pg (27.0-33.0); MEAN CORPUSCULAR HGB CONC 31.6 g/dl (32.0-36.5); MEAN CORPUSCULAR VOLUME 92.6 fl (80.0-96.0); PLATELET COUNT, AUTOMATED 233 10^3/uL (150-450); RED BLOOD COUNT 5.37 10^6/uL (4.30-6.10); WHITE BLOOD COUNT 9.5 10^3/uL (4.0-10.0)
[2022-07-14 17:03] LABS: ALBUMIN 3.8 G/DL (3.2-5.2); ALKALINE PHOSPHATASE 113 U/L (46-116); ALT/SGPT 12 U/L (7.0-40); AST/SGOT 18 U/L (<34); BILIRUBIN,TOTAL 0.3 MG/DL (0.3-1.2); BLOOD UREA NITROGEN 10 MG/DL (9-23); CALCIUM LEVEL 9.1 MG/DL (8.3-10.6); CARBON DIOXIDE LEVEL 30 MMOL/L (20-31); CHLORIDE LEVEL 100 MMOL/L (98-107); CHOLESTEROL LEVEL 130 MG/DL (<200); CREATININE FOR GFR 0.79 MG/DL (0.70-1.30); GLOMERULAR FILTRATION RATE > 60.0 (>49); GLUCOSE, FASTING 81 MG/DL (74-106); HDL CHOLESTEROL 31.7 MG/DL (>40); LDL CHOLESTEROL 73.7 MG/DL (<100); NON-HDL-C 98 MG/DL; POTASSIUM SERUM 4.9 MMOL/L (3.5-5.1); SODIUM LEVEL 137 MMOL/L (136-145); TOTAL PROTEIN 7.1 G/DL (5.7-8.2); TRIGLYCERIDES LEVEL 123 MG/DL (<150)
== END ==
LOC: M WUC 11:08
PROVIDERS: ATTEND Physician Assistant
DX: I10 Essential (primary) hypertension (principal); I25.10 Atherosclerotic heart disease of native coronary artery without angina pectoris; E78.00 Pure hypercholesterolemia, unspecified

== ENCOUNTER → 2022-09-21 | Outpatient (CLI) | payer MEDICARE | LOC: M RAD 09:56 | PROVIDERS: ATTEND Surgery Vascular Surgery | DX: I70.203 Unspecified atherosclerosis of native arteries of extremities, bilateral legs (principal); I71.40 Abdominal aortic aneurysm, without rupture, unspecified ==

== ENCOUNTER → 2022-10-21 | Outpatient (CLI) | payer MEDICARE ==
[2022-10-21 17:34] LABS: BLOOD UREA NITROGEN 14 MG/DL (9-23); CREATININE FOR GFR 0.79 MG/DL (0.70-1.30); GLOMERULAR FILTRATION RATE > 60.0 (>49)
== END ==
LOC: M WUC 14:19
PROVIDERS: ATTEND Surgery Vascular Surgery
DX: Z01.818 Encounter for other preprocedural examination (principal); I70.211 Atherosclerosis of native arteries of extremities with intermittent claudication, right leg; I71.40 Abdominal aortic aneurysm, without rupture, unspecified

== ENCOUNTER → 2022-10-27 | Outpatient (CLI) | payer MEDICARE ==
[~2022-10-27] MED LIST changes: +ISOVUE-370 76% 100ML VIAL As Ordered ONE
== END ==
LOC: M RAD 13:35
PROVIDERS: ATTEND Surgery Vascular Surgery
DX: I71.40 Abdominal aortic aneurysm, without rupture, unspecified (principal); I74.09 Other arterial embolism and thrombosis of abdominal aorta; R59.9 Enlarged lymph nodes, unspecified; N28.1 Cyst of kidney, acquired; Z90.49 Acquired absence of other specified parts of digestive tract; E27.9 Disorder of adrenal gland, unspecified
CPT/HCPCS: 71275; 74174; Q9967

== ENCOUNTER → 2025-04-17 | Outpatient (CLI) | payer MEDICARE ==
[~2025-04-17] MED LIST changes: +AMIT10TA11 PO; -AMIT10TA7 PO; -ISOVUE-370 76% 100ML VIAL As Ordered ONE
[2025-04-17 18:22] LABS: ALT/SGPT 10 U/L (7.0-40); AST/SGOT 13 U/L (<34); BASO # 0.0 10^3/uL (0.0-0.2); BASO % 0.4 % (0.0-1.0); CALCIUM LEVEL 8.3 MG/DL (8.3-10.6); CARBON DIOXIDE LEVEL 26 MMOL/L (20-31); CHLORIDE LEVEL 106 MMOL/L (98-107); CHOLESTEROL LEVEL 170 MG/DL (<200); CHOLESTEROL RISK RATIO 5.07 (<5); CREATININE FOR GFR 0.74 MG/DL (0.70-1.30); EOS # 0.1 10^3/uL (0.0-0.5); EOS % 1.2 % (0.0-3.0); GLOMERULAR FILTRATION RATE > 90.0 (>42); LDL CHOLESTEROL 100.3 MG/DL (<100); LYMPH # 2.1 10^3/uL (1.5-5.0); LYMPH % 22.9 % (24.0-44.0); MONO # 0.7 10^3/uL (0.0-0.8); MONO % 7.7 % (2.0-8.0); NEUTROPHILS # 6.1 10^3/uL (1.5-8.5); NEUTROPHILS % 67.6 % (36.0-66.0); NON-HDL-C 136.5 MG/DL; PLATELET COUNT, AUTOMATED 182 10^3/uL (150-450); POTASSIUM SERUM 4.2 MMOL/L (3.5-5.1); SODIUM LEVEL 140 MMOL/L (136-145); TRIGLYCERIDES LEVEL 181 MG/DL (<150)
== END ==
LOC: M WUC 14:11
PROVIDERS: ATTEND Family Medicine
DX: I10 Essential (primary) hypertension (principal)